=== PATIENT | female | born 1960 | race African-American/Black ===

== ENCOUNTER 2017-10-17 05:49 | Inpatient (IN) ==
[2017-10-16 13:44] LABS: Basophils # 0.1 10*3/uL (0.0-0.2); Eosinophils # 0.3 10*3/uL (0.0-0.87); Eosinophils % 4.9 % (0.00-10.9); Hematocrit 42.4 VOL% (35.7-47.0); Immature Granulocytes % 0.1 %; Immature Granulocytes Absolute 0.01 #; Lymphocytes # 2.7 10*3/uL (1.4-4.0); Lymphocytes % 40.5 % (21.3-54.2); Mean Corpuscular Hemoglobin 30 PG (27-34); Mean Corpuscular Volume 90.2 FL (87-102); Mean Platelet Volume 9.2 FL (9.6-12.0); Monocytes # 0.6 10*3/uL (0.11-0.8); Monocytes % 9.4 % (1.7-12.7); Neutrophils # 2.9 10*3/uL (1.4-7.4); Neutrophils % 44.1 % (38.7-73.9); Platelet Count 314 T/CUMM (130-400); White Blood Count 6.7 T/CUMM (4-12)
[2017-10-16 13:45] LABS: Apearance,Urine CLEAR (Clear); Bilirubin,Urine Negative (Negative); Blood, Urine Small mg/dL (Negative); Glucose,Urine (UA) Negative (Negative); Ketones,Urine Negative (Negative); Nitrite,Urine Negative (Negative); Protein,Urine Negative; RBC,Urine <1 /HPF (0-4); Squamous Epithelial Cell,Urine Occasional /HPF (0-10); Urine Color Straw (Yellow); Urine Specific Gravity 1.024 (1.001-1.035); Urine Urobilinogen < 2.0 EU/DL (0.2-1.0); WBC,Urine <1 /HPF (0-6)
[2017-10-16 13:56] LABS: PT Patient Result 10.9 SECS; Partial Thromboplastin Time 29.7 SECS (0-40)
[2017-10-16 14:12] LABS: Calcium 9.1 MG/DL (8.5-10.1); Osmolality,Calculated 271.7 MOS/KG (273-304); Potassium 3.8 MMOL/L (3.5-5.1)
[~2017-10-17 05:49] MED LIST: SODIUM CHLORIDE 0.9% 1,000 ML IV PRN
[2017-10-17] MEDS ORDERED: DIAZEPAM 5 MG TABLET PO ONE (06:00)
[2017-10-17] MEDS ORDERED: ALBUTEROL/IPRATROPIUM 3 ML NEB RESP TX ONE (06:00)
[2017-10-17] MEDS ORDERED: FAMOTIDINE 20 MG TABLET PO ONE (06:00)
[2017-10-17] MEDS ORDERED: TISSUE ADHESIVE 1 EACH APPLICATOR TOP ONE ×2 (06:12→08:30)
[2017-10-17] MEDS ORDERED: BUPIVACAINE LIPOSOMAL 20 ML/266 MG VIAL ONE (06:12)
[2017-10-17] MEDS ORDERED: FAMOTIDINE 20 MG TABLET ONE (06:19)
[2017-10-17] MEDS ORDERED: DIAZEPAM 5 MG TABLET ONE (06:19)
[2017-10-17] MEDS ORDERED: CEFUROXIME 1,500 MG VIAL ONE (06:32)
[2017-10-17] MEDS ORDERED: LACTATED RINGERS 1,000 ML IV SCH (07:00)
[2017-10-17 10:27] LABS: ABG Base Excess -3.2 MMOL/L (-2.5-2.5); ABG HCO3 21.8 MMOL/L (20-26); ABG Oxygen Saturation 98.9 % (95-100); ABG PCO2 58.8 MM HG (35-48); ABG PH 7.243 (7.35-7.45); ABG TCO2 22.9 MMOL/L (23-27); Glucose Heart Surgery 142 MG/DL (74-106); Hematocrit Heart Surgery 37.8 PERCENT (37-47); Hemoglobin Heart Surgery 12.3 G/DL (12.0-16.0); Ionized Calcium Arterial 1.22 MMOL/L (1.21-1.46); PCO2 Patient Temp Arterial 58.8 MMHG; PH Patient Temp Arterial 7.243; Patient Temperature 37 CELCIUS; Potassium Heart/CVR 4.2 MMOL/L (3.5-5.1); Sodium Heart/CVR 140 MMOL/L (135-145)
[2017-10-17] MEDS ORDERED: ONDANSETRON 4 MG/2 ML VIAL IV PRN (12:22)
[2017-10-17] MEDS ORDERED: ACETAMINOPHEN 325 MG TABLET PO PRN (12:22)
[2017-10-17] MEDS ORDERED: POTASSIUM CHLORIDE INJ 10 MEQ in SODIUM CHLORIDE 0.45% 1,000 ML IV SCH (12:30)
[2017-10-17] MEDS ORDERED: fentaNYL 100 MCG/2 ML VIAL IV ONE (12:48)
[2017-10-17] MEDS ORDERED: fentaNYL 100 MCG/2 ML VIAL ONE ×2 (12:48→12:53)
[2017-10-17] MEDS ORDERED: KETAMINE 500 MG/10 ML VIAL ONE (12:50)
[2017-10-17] MEDS ORDERED: SEVOFLURANE 1 UNIT/15 MINUTE INH ONE (12:52)
[2017-10-17] MEDS ORDERED: PROPOFOL 200 MG/20 ML VIAL IV ONE (12:52)
[2017-10-17] MEDS ORDERED: SODIUM CHLORIDE 0.9% 250 ML IV ONE (12:53)
[2017-10-17] MEDS ORDERED: LACTATED RINGERS 1,000 ML IV ONE (12:53)
[2017-10-17] MEDS ORDERED: PHENYLEPHRINE 10 MG/1 ML VIAL IV ONE (12:53)
[2017-10-17] MEDS ORDERED: GLYCOPYRROLATE 0.4 MG/2 ML VIAL ONE (12:53)
[2017-10-17] MEDS ORDERED: ROCURONIUM 100 MG/10 ML VIAL IV ONE (12:53)
[2017-10-17] MEDS ORDERED: NEOSTIGMINE 10 MG/10 ML VIAL ONE (12:53)
[2017-10-17] MEDS ORDERED: SODIUM CHLORIDE 0.9% 100 ML IV ONE (12:53)
[2017-10-17] MEDS ORDERED: ACETAMINOPHEN 1,000 MG/100 ML VIAL IV ONE (12:53)
[2017-10-17] MEDS ORDERED: SUCCINYLCHOLINE 200 MG/10 ML VIAL ONE ×2 (12:54→12:56)
[2017-10-17 13:03] LABS: Basophils % 0.3 % (0.0-0.8); Eosinophils # 0.1 10*3/uL (0.0-0.87); Eosinophils % 0.3 % (0.00-10.9); Hematocrit 38.8 VOL% (35.7-47.0); Hemoglobin 12.7 GM/DL (12.0-16.0); Immature Granulocytes % 0.3 %; Immature Granulocytes Absolute 0.04 #; Lymphocytes # 2.1 10*3/uL (1.4-4.0); Lymphocytes % 13.7 % (21.3-54.2); Mean Corpuscular HGB Conc 32.7 GM/DL (32-36); Mean Corpuscular Hemoglobin 30 PG (27-34); Mean Corpuscular Volume 91.5 FL (87-102); Mean Platelet Volume 9.3 FL (9.6-12.0); Monocytes # 1.2 10*3/uL (0.11-0.8); Neutrophils # 11.7 10*3/uL (1.4-7.4); Neutrophils % 77.4 % (38.7-73.9); Platelet Count 312 T/CUMM (130-400); Red Blood Count 4.24 MC/CUMM (3.8-5.5); Red Cell Distribution Width 13.2 % (9.3-17.3); White Blood Count 15.1 T/CUMM (4-12)
[2017-10-17] MEDS ORDERED: MIDAZOLAM 2 MG/2 ML VIAL ONE (13:05)
[2017-10-17] MEDS: KETOROLAC 15 MG/1 ML VIAL IV SCH ×2 (13:08→18:25)
[2017-10-17] MEDS: SODIUM CHLOR 0.45% KCL 20 MEQ 20 MEQ/1,000 ML BAG IV SCH ×2 (13:12→21:16)
[2017-10-17 13:20] LABS: Calcium 8.1 MG/DL (8.5-10.1); Osmolality,Calculated 279.3 MOS/KG (273-304); Potassium 4.2 MMOL/L (3.5-5.1)
[2017-10-17] MEDS: MEPERIDINE 50 MG/1 ML VIAL IV PRN ×5 (14:18→23:21)
[2017-10-17] MEDS: GABAPENTIN 100 MG CAPSULE PO SCH ×2 (14:18→20:43)
[2017-10-17] MEDS: ACETAMINOPHEN INJ 1,000 MG in PREMIX 1 EACH IV SCH (18:24)
[2017-10-17] MEDS: CEFUROXIME INJ 1,500 MG in SYRINGE 1 EACH IV SCH (20:43)
[2017-10-18] MEDS: ACETAMINOPHEN INJ 1,000 MG in PREMIX 1 EACH IV SCH (00:14)
[2017-10-18] MEDS: MEPERIDINE 50 MG/1 ML VIAL IV PRN ×7 (00:15→10:00)
[2017-10-18] MEDS: KETOROLAC 15 MG/1 ML VIAL IV SCH ×4 (00:15→18:11)
[2017-10-18 03:14] LABS: Basophils % 0.3 % (0.0-0.8); Eosinophils # 0.2 10*3/uL (0.0-0.87); Eosinophils % 1.5 % (0.00-10.9); Hematocrit 36.2 VOL% (35.7-47.0); Hemoglobin 12.2 GM/DL (12.0-16.0); Immature Granulocytes % 0.3 %; Immature Granulocytes Absolute 0.03 #; Lymphocytes # 2.2 10*3/uL (1.4-4.0); Lymphocytes % 20.6 % (21.3-54.2); Mean Corpuscular HGB Conc 33.7 GM/DL (32-36); Mean Corpuscular Hemoglobin 30 PG (27-34); Mean Corpuscular Volume 87.9 FL (87-102); Mean Platelet Volume 9.3 FL (9.6-12.0); Monocytes % 9.2 % (1.7-12.7); Neutrophils # 7.2 10*3/uL (1.4-7.4); Neutrophils % 68.1 % (38.7-73.9); Platelet Count 277 T/CUMM (130-400); Red Blood Count 4.12 MC/CUMM (3.8-5.5); Red Cell Distribution Width 12.9 % (9.3-17.3); White Blood Count 10.6 T/CUMM (4-12)
[2017-10-18 03:42] LABS: Calcium 8.3 MG/DL (8.5-10.1); Osmolality,Calculated 275.4 MOS/KG (273-304)
[2017-10-18] MEDS: ENOXAPARIN 40 MG/0.4 ML SYRINGE SUBCUT SCH (06:13)
[2017-10-18] MEDS: ACETAMINOPHEN 500 MG TABLET PO SCH ×3 (06:13→18:11)
[2017-10-18] MEDS: SODIUM CHLOR 0.45% KCL 20 MEQ 20 MEQ/1,000 ML BAG IV SCH ×3 (06:18→22:03)
[2017-10-18] MEDS: CEFUROXIME INJ 1,500 MG in SYRINGE 1 EACH IV SCH (07:32)
[2017-10-18] MEDS: GABAPENTIN 100 MG CAPSULE PO SCH ×3 (08:00→22:11)
[2017-10-18] MEDS: CELECOXIB 200 MG CAPSULE PO SCH ×2 (08:30→22:12)
[2017-10-18] MEDS: PANTOPRAZOLE 40 MG VIAL IV SCH (08:34)
[2017-10-18] MEDS ORDERED: PNEUMOCOCCAL VACCINE (23 VALENT) 0.5 ML VIAL IM ONE (09:00)
[2017-10-18] MEDS: clonazePAM 0.5 MG TABLET PO SCH ×2 (09:24→22:12)
[2017-10-18] MEDS ORDERED: PANTOPRAZOLE 40 MG TABLET PO PRN (11:30)
[2017-10-18] MEDS ORDERED: ALBUTEROL 2.5 MG/3 ML NEB RESP TX PRN (11:30)
[2017-10-18] MEDS ORDERED: ONDANSETRON 4 MG TABLET PO PRN (11:30)
[2017-10-18] MEDS: oxyCODONE ER 20 MG TABLET PO SCH ×2 (11:31→22:11)
[2017-10-18] MEDS: MEPERIDINE 50 MG TABLET PO PRN (13:25)
[2017-10-19] MEDS: ACETAMINOPHEN 500 MG TABLET PO SCH ×4 (00:20→18:17)
[2017-10-19] MEDS: KETOROLAC 15 MG/1 ML VIAL IV SCH ×2 (00:20→06:48)
[2017-10-19] MEDS: SODIUM CHLOR 0.45% KCL 20 MEQ 20 MEQ/1,000 ML BAG IV SCH ×2 (04:05→06:44)
[2017-10-19 05:41] LABS: Basophils # 0.1 10*3/uL (0.0-0.2); Basophils % 0.8 % (0.0-0.8); Eosinophils # 0.5 10*3/uL (0.0-0.87); Eosinophils % 6.1 % (0.00-10.9); Hematocrit 34.7 VOL% (35.7-47.0); Hemoglobin 11.9 GM/DL (12.0-16.0); Immature Granulocytes % 0.1 %; Immature Granulocytes Absolute 0.01 #; Lymphocytes # 2.9 10*3/uL (1.4-4.0); Lymphocytes % 33.2 % (21.3-54.2); Mean Corpuscular HGB Conc 34.3 GM/DL (32-36); Mean Corpuscular Hemoglobin 30 PG (27-34); Mean Corpuscular Volume 86.8 FL (87-102); Mean Platelet Volume 9.7 FL (9.6-12.0); Monocytes # 0.9 10*3/uL (0.11-0.8); Monocytes % 10.3 % (1.7-12.7); Neutrophils # 4.3 10*3/uL (1.4-7.4); Neutrophils % 49.5 % (38.7-73.9); Platelet Count 294 T/CUMM (130-400); Red Cell Distribution Width 12.8 % (9.3-17.3); White Blood Count 8.8 T/CUMM (4-12)
[2017-10-19 06:19] LABS: Calcium 8.2 MG/DL (8.5-10.1); Osmolality,Calculated 272.5 MOS/KG (273-304); Potassium 3.6 MMOL/L (3.5-5.1)
[2017-10-19] MEDS: ENOXAPARIN 40 MG/0.4 ML SYRINGE SUBCUT SCH (06:48)
[2017-10-19] MEDS: LEVOTHYROXINE 175 MCG TABLET PO SCH (06:48)
[2017-10-19] MEDS: GABAPENTIN 100 MG CAPSULE PO SCH ×3 (08:49→20:35)
[2017-10-19] MEDS: CELECOXIB 200 MG CAPSULE PO SCH ×2 (08:49→20:34)
[2017-10-19] MEDS: oxyCODONE ER 20 MG TABLET PO SCH ×2 (08:49→20:35)
[2017-10-19] MEDS: clonazePAM 0.5 MG TABLET PO SCH ×2 (08:49→20:35)
[2017-10-19] MEDS: HYDROXYCHLOROQUINE 200 MG TABLET PO SCH (08:49)
[2017-10-19] MEDS: predniSONE 5 MG TABLET PO SCH (08:51)
[2017-10-19] MEDS: PANTOPRAZOLE 40 MG VIAL IV SCH (08:55)
[2017-10-19] MEDS: MEPERIDINE 50 MG TABLET PO PRN (16:57)
[2017-10-19] MEDS: ALBUTEROL 2.5 MG/3 ML NEB RESP TX PRN (21:25)
[2017-10-20] MEDS: ACETAMINOPHEN 500 MG TABLET PO SCH ×4 (00:21→17:30)
[2017-10-20] MEDS: MEPERIDINE 50 MG TABLET PO PRN ×2 (02:00→17:30)
[2017-10-20 05:58] LABS: Basophils # 0.1 10*3/uL (0.0-0.2); Basophils % 0.6 % (0.0-0.8); Eosinophils # 0.5 10*3/uL (0.0-0.87); Hematocrit 35.4 VOL% (35.7-47.0); Hemoglobin 12.1 GM/DL (12.0-16.0); Immature Granulocytes % 0.3 %; Immature Granulocytes Absolute 0.03 #; Lymphocytes # 2.5 10*3/uL (1.4-4.0); Lymphocytes % 28.1 % (21.3-54.2); Mean Corpuscular HGB Conc 34.2 GM/DL (32-36); Mean Corpuscular Hemoglobin 30 PG (27-34); Mean Corpuscular Volume 86.8 FL (87-102); Monocytes % 11.2 % (1.7-12.7); Neutrophils # 4.9 10*3/uL (1.4-7.4); Neutrophils % 53.8 % (38.7-73.9); Platelet Count 338 T/CUMM (130-400); Red Blood Count 4.08 MC/CUMM (3.8-5.5); Red Cell Distribution Width 12.7 % (9.3-17.3)
[2017-10-20 06:22] LABS: Calcium 8.7 MG/DL (8.5-10.1); Osmolality,Calculated 279.3 MOS/KG (273-304); Potassium 3.5 MMOL/L (3.5-5.1)
[2017-10-20] MEDS: ENOXAPARIN 40 MG/0.4 ML SYRINGE SUBCUT SCH (06:53)
[2017-10-20] MEDS: LEVOTHYROXINE 175 MCG TABLET PO SCH (06:53)
[2017-10-20] MEDS: predniSONE 5 MG TABLET PO SCH (08:46)
[2017-10-20] MEDS: oxyCODONE ER 20 MG TABLET PO SCH ×2 (08:46→20:28)
[2017-10-20] MEDS: clonazePAM 0.5 MG TABLET PO SCH ×2 (08:46→20:28)
[2017-10-20] MEDS: CELECOXIB 200 MG CAPSULE PO SCH ×2 (08:46→20:28)
[2017-10-20] MEDS: GABAPENTIN 100 MG CAPSULE PO SCH ×3 (08:46→20:28)
[2017-10-20] MEDS: PANTOPRAZOLE 40 MG VIAL IV SCH (08:46)
[2017-10-20] MEDS: HYDROXYCHLOROQUINE 200 MG TABLET PO SCH (08:46)
[2017-10-20] MEDS ORDERED: FUROSEMIDE 40 MG/4 ML VIAL IV ONE (08:52)
[2017-10-20] MEDS: ALBUTEROL/IPRATROPIUM 3 ML NEB RESP TX SCH ×2 (11:30→19:36)
[2017-10-21] MEDS: ACETAMINOPHEN 500 MG TABLET PO SCH ×4 (00:01→18:07)
[2017-10-21] MEDS: ALBUTEROL/IPRATROPIUM 3 ML NEB RESP TX SCH ×7 (00:06→19:34)
[2017-10-21] MEDS: MEPERIDINE 50 MG TABLET PO PRN ×2 (04:00→12:30)
[2017-10-21 05:10] LABS: Basophils # 0.1 10*3/uL (0.0-0.2); Eosinophils # 0.8 10*3/uL (0.0-0.87); Eosinophils % 8.1 % (0.00-10.9); Hematocrit 38.4 VOL% (35.7-47.0); Hemoglobin 13.1 GM/DL (12.0-16.0); Immature Granulocytes % 0.3 %; Immature Granulocytes Absolute 0.03 #; Lymphocytes # 3.1 10*3/uL (1.4-4.0); Lymphocytes % 33.1 % (21.3-54.2); Mean Corpuscular HGB Conc 34.1 GM/DL (32-36); Mean Corpuscular Hemoglobin 30 PG (27-34); Mean Corpuscular Volume 87.1 FL (87-102); Mean Platelet Volume 9.7 FL (9.6-12.0); Monocytes # 1.2 10*3/uL (0.11-0.8); Monocytes % 12.6 % (1.7-12.7); Neutrophils # 4.2 10*3/uL (1.4-7.4); Neutrophils % 44.9 % (38.7-73.9); Platelet Count 358 T/CUMM (130-400); Red Blood Count 4.41 MC/CUMM (3.8-5.5); Red Cell Distribution Width 12.8 % (9.3-17.3); White Blood Count 9.2 T/CUMM (4-12)
[2017-10-21 05:43] LABS: Calcium 8.7 MG/DL (8.5-10.1); Potassium 3.2 MMOL/L (3.5-5.1)
[2017-10-21] MEDS: LEVOTHYROXINE 175 MCG TABLET PO SCH (06:24)
[2017-10-21] MEDS: ENOXAPARIN 40 MG/0.4 ML SYRINGE SUBCUT SCH (06:24)
[2017-10-21] MEDS: GABAPENTIN 100 MG CAPSULE PO SCH ×3 (08:11→21:45)
[2017-10-21] MEDS: clonazePAM 0.5 MG TABLET PO SCH ×2 (08:11→21:45)
[2017-10-21] MEDS: HYDROXYCHLOROQUINE 200 MG TABLET PO SCH (08:11)
[2017-10-21] MEDS: CELECOXIB 200 MG CAPSULE PO SCH ×2 (08:11→21:45)
[2017-10-21] MEDS: PANTOPRAZOLE 40 MG VIAL IV SCH (08:11)
[2017-10-21] MEDS: oxyCODONE ER 20 MG TABLET PO SCH ×2 (08:11→21:46)
[2017-10-21] MEDS: predniSONE 5 MG TABLET PO SCH (08:11)
[2017-10-21] MEDS ORDERED: POTASSIUM CHLORIDE 20 MEQ TABLET PO ONE (08:32)
[2017-10-21] MEDS: POTASSIUM CHLORIDE 20 MEQ TABLET PO SCH ×4 (08:59→16:25)
[2017-10-21] MEDS: traMADol 50 MG TABLET PO PRN ×2 (10:55→18:08)
[2017-10-21] MEDS ORDERED: POTASSIUM CHLORIDE 20 MEQ TABLET PO SCH (16:30)
[2017-10-22] MEDS: ALBUTEROL/IPRATROPIUM 3 ML NEB RESP TX SCH ×6 (00:18→19:25)
[2017-10-22] MEDS: ACETAMINOPHEN 500 MG TABLET PO SCH ×4 (00:58→18:09)
[2017-10-22] MEDS: MEPERIDINE 50 MG TABLET PO PRN ×2 (04:50→13:46)
[2017-10-22] MEDS: LEVOTHYROXINE 175 MCG TABLET PO SCH (06:39)
[2017-10-22] MEDS: ENOXAPARIN 40 MG/0.4 ML SYRINGE SUBCUT SCH (06:39)
[2017-10-22] MEDS: oxyCODONE ER 20 MG TABLET PO SCH ×2 (08:51→22:40)
[2017-10-22] MEDS: clonazePAM 0.5 MG TABLET PO SCH ×2 (08:51→22:40)
[2017-10-22] MEDS: CELECOXIB 200 MG CAPSULE PO SCH ×2 (08:51→22:40)
[2017-10-22] MEDS: predniSONE 5 MG TABLET PO SCH (08:51)
[2017-10-22] MEDS: GABAPENTIN 100 MG CAPSULE PO SCH ×3 (08:51→22:40)
[2017-10-22] MEDS: HYDROXYCHLOROQUINE 200 MG TABLET PO SCH (08:51)
[2017-10-22] MEDS: PANTOPRAZOLE 40 MG VIAL IV SCH (08:52)
[2017-10-23] MEDS: ALBUTEROL/IPRATROPIUM 3 ML NEB RESP TX SCH ×6 (00:14→19:15)
[2017-10-23] MEDS: ACETAMINOPHEN 500 MG TABLET PO SCH ×4 (01:35→18:59)
[2017-10-23] MEDS: MEPERIDINE 50 MG TABLET PO PRN (05:13)
[2017-10-23] MEDS: ENOXAPARIN 40 MG/0.4 ML SYRINGE SUBCUT SCH (06:34)
[2017-10-23] MEDS: LEVOTHYROXINE 175 MCG TABLET PO SCH (06:35)
[2017-10-23] MEDS: oxyCODONE ER 20 MG TABLET PO SCH ×2 (09:46→21:47)
[2017-10-23] MEDS: CELECOXIB 200 MG CAPSULE PO SCH ×2 (09:48→21:46)
[2017-10-23] MEDS: HYDROXYCHLOROQUINE 200 MG TABLET PO SCH (09:49)
[2017-10-23] MEDS: predniSONE 5 MG TABLET PO SCH (09:49)
[2017-10-23] MEDS: GABAPENTIN 100 MG CAPSULE PO SCH ×3 (09:49→21:47)
[2017-10-23] MEDS: clonazePAM 0.5 MG TABLET PO SCH ×2 (09:50→21:46)
[2017-10-24] MEDS: ALBUTEROL/IPRATROPIUM 3 ML NEB RESP TX SCH ×7 (00:21→23:14)
[2017-10-24] MEDS: ACETAMINOPHEN 500 MG TABLET PO SCH ×4 (01:40→18:10)
[2017-10-24] MEDS: LEVOTHYROXINE 175 MCG TABLET PO SCH (07:19)
[2017-10-24] MEDS: ENOXAPARIN 40 MG/0.4 ML SYRINGE SUBCUT SCH (07:19)
[2017-10-24] MEDS: oxyCODONE ER 20 MG TABLET PO SCH ×2 (10:01→20:22)
[2017-10-24] MEDS: clonazePAM 0.5 MG TABLET PO SCH ×2 (10:02→20:24)
[2017-10-24] MEDS: CELECOXIB 200 MG CAPSULE PO SCH ×2 (10:02→20:24)
[2017-10-24] MEDS: PANTOPRAZOLE 40 MG TABLET PO SCH (10:03)
[2017-10-24] MEDS: predniSONE 5 MG TABLET PO SCH (10:03)
[2017-10-24] MEDS: GABAPENTIN 100 MG CAPSULE PO SCH ×3 (10:03→20:24)
[2017-10-24] MEDS: HYDROXYCHLOROQUINE 200 MG TABLET PO SCH (10:03)
[2017-10-24] MEDS: ALBUTEROL 2.5 MG/3 ML NEB RESP TX PRN (14:54)
[2017-10-25] MEDS: ACETAMINOPHEN 500 MG TABLET PO SCH ×5 (01:45→17:37)
[2017-10-25] MEDS: ALBUTEROL/IPRATROPIUM 3 ML NEB RESP TX SCH ×6 (03:05→23:16)
[2017-10-25] MEDS: MEPERIDINE 50 MG TABLET PO PRN (05:55)
[2017-10-25] MEDS: LEVOTHYROXINE 175 MCG TABLET PO SCH (06:50)
[2017-10-25] MEDS: ENOXAPARIN 40 MG/0.4 ML SYRINGE SUBCUT SCH (06:50)
[2017-10-25] MEDS: oxyCODONE ER 20 MG TABLET PO SCH ×2 (08:45→21:22)
[2017-10-25] MEDS: PANTOPRAZOLE 40 MG TABLET PO SCH (08:47)
[2017-10-25] MEDS: GABAPENTIN 100 MG CAPSULE PO SCH ×3 (08:47→21:22)
[2017-10-25] MEDS: CELECOXIB 200 MG CAPSULE PO SCH ×2 (08:47→21:22)
[2017-10-25] MEDS: clonazePAM 0.5 MG TABLET PO SCH ×2 (08:47→21:22)
[2017-10-25] MEDS: predniSONE 5 MG TABLET PO SCH (08:47)
[2017-10-25] MEDS: HYDROXYCHLOROQUINE 200 MG TABLET PO SCH (08:47)
[2017-10-26] MEDS: ACETAMINOPHEN 500 MG TABLET PO SCH ×2 (00:57→06:03)
[2017-10-26] MEDS: ALBUTEROL/IPRATROPIUM 3 ML NEB RESP TX SCH ×3 (02:45→11:19)
[2017-10-26] MEDS: ENOXAPARIN 40 MG/0.4 ML SYRINGE SUBCUT SCH (06:04)
[2017-10-26] MEDS: LEVOTHYROXINE 175 MCG TABLET PO SCH (06:05)
[2017-10-26 07:58] VITALS: BP 120/55
[2017-10-26] MEDS: GABAPENTIN 100 MG CAPSULE PO SCH (09:52)
[2017-10-26] MEDS: PANTOPRAZOLE 40 MG TABLET PO SCH (09:52)
[2017-10-26] MEDS: CELECOXIB 200 MG CAPSULE PO SCH (09:52)
[2017-10-26] MEDS: HYDROXYCHLOROQUINE 200 MG TABLET PO SCH (09:52)
[2017-10-26] MEDS: predniSONE 5 MG TABLET PO SCH (09:52)
[2017-10-26] MEDS: oxyCODONE ER 20 MG TABLET PO SCH (09:52)
[2017-10-26] MEDS: clonazePAM 0.5 MG TABLET PO SCH (09:52)
== END 2017-10-26 11:33 | disposition home health service (06) | DRG 165 ==
LOC: N.SDSINP 05:49 → N.ICU 10:24 → N.TELES 10-18 11:01
PROVIDERS: ADMIT Thoracic Surgery (Cardiothoracic Vascular Surgery); ATTEND Thoracic Surgery (Cardiothoracic Vascular Surgery)

== ENCOUNTER 2022-02-26 23:29 | Inpatient (IN) ==
[2022-02-26] MEDS ORDERED: ONDANSETRON 4 MG/2 ML VIAL IV ONE (23:54)
[2022-02-26] MEDS ORDERED: MORPHINE 2 MG/1 ML SYRINGE IV ONE (23:54)
[2022-02-27 00:20] LABS: Basophils % 0.3 % (0.0-0.8); Eosinophils % 0.2 % (0.00-10.9); Hematocrit 40.4 VOL% (35.7-47.0); Hemoglobin 13.2 GM/DL (12.0-16.0); Immature Granulocytes % 0.4 %; Immature Granulocytes Absolute 0.05 #; Lymphocytes # 1.4 10*3/uL (1.4-4.0); Lymphocytes % 10.2 % (21.3-54.2); Mean Corpuscular HGB Conc 32.7 GM/DL (32-36); Mean Corpuscular Volume 87.4 FL (87-102); Mean Platelet Volume 10.2 FL (9.6-12.0); Monocytes # 1.5 10*3/uL (0.11-0.8); Monocytes % 10.7 % (1.7-12.7); Neutrophils % 78.2 % (38.7-73.9); Platelet Count 559 T/CUMM (130-400); Red Blood Count 4.62 MC/CUMM (3.8-5.5); Red Cell Distribution Width 13.7 % (9.3-17.3); White Blood Count 13.7 T/CUMM (4-12)
[2022-02-27] MEDS ORDERED: HYDROmorphone 1 MG/1 ML SYRINGE IV STA (00:21)
[2022-02-27 00:25] LABS: Albumin 2.1 G/DL (3.4-5.0); Calcium 8.7 MG/DL (8.5-10.1); Osmolality,Calculated 273.7 MOS/KG (273-304); Potassium 3.1 MMOL/L (3.5-5.1); Total Protein 6.4 G/DL (6.4-8.2)
[2022-02-27] MEDS ORDERED: AZITHROMYCIN INJ 500 MG in SODIUM CHLORIDE 0.9% 250 ML IV STA (00:44)
[2022-02-27] MEDS ORDERED: cefTRIAXone 1,000 MG in SODIUM CHLORIDE 0.9% 100 ML IV STA (00:44)
[2022-02-27 00:51] LABS: INR 1.1; PT Patient Result 12.1 SECS (10.1-12.1); Partial Thromboplastin Time 32.3 SECS (23.7-32.9)
[2022-02-27] MEDS ORDERED: MORPHINE 2 MG/1 ML SYRINGE IV PRN (02:24)
[2022-02-27] MEDS ORDERED: ONDANSETRON 4 MG/2 ML VIAL IV PRN (02:24)
[2022-02-27] MEDS ORDERED: NICOTINE 21 MG/24 HR PATCH TRANSDERM PRN (02:24)
[2022-02-27] MEDS ORDERED: ACETAMINOPHEN 325 MG TABLET PO PRN (02:24)
[2022-02-27] MEDS ORDERED: ALBUTEROL/IPRATROPIUM 3 ML NEB RESP TX STA (02:30)
[2022-02-27] MEDS ORDERED: LACTATED RINGERS 1,000 ML IV SCH (02:45)
[2022-02-27] MEDS: PIPERACILLIN/TAZOBACTAM 3,375 MG in SODIUM CHLORIDE 0.9% 100 ML IV SCH ×3 (03:00→18:32)
[2022-02-27] MEDS: POTASSIUM CHLORIDE RIDER 10 MEQ/100 ML PREMIX IV SCH ×2 (03:00→03:58)
[2022-02-27] MEDS ORDERED: HYDROmorphone 1 MG/1 ML SYRINGE IV PRN (03:17)
[2022-02-27] MEDS: VANCOMYCIN INJ 1,250 MG in SODIUM CHLORIDE 0.9% 250 ML IV SCH ×2 (04:08→14:35)
[2022-02-27] MEDS ORDERED: POTASSIUM CHLORIDE 20 MEQ TABLET PO ONE (04:30)
[2022-02-27 06:09] LABS: Basophils # 0.1 10*3/uL (0.0-0.2); Basophils % 0.4 % (0.0-0.8); Eosinophils # 0.1 10*3/uL (0.0-0.87); Eosinophils % 0.5 % (0.00-10.9); Hemoglobin 12.5 GM/DL (12.0-16.0); Immature Granulocytes % 0.6 %; Immature Granulocytes Absolute 0.08 #; Lymphocytes # 1.2 10*3/uL (1.4-4.0); Lymphocytes % 9.3 % (21.3-54.2); Mean Corpuscular HGB Conc 32.9 GM/DL (32-36); Mean Corpuscular Volume 87.4 FL (87-102); Mean Platelet Volume 9.7 FL (9.6-12.0); Monocytes # 1.4 10*3/uL (0.11-0.8); Monocytes % 10.5 % (1.7-12.7); Neutrophils % 78.7 % (38.7-73.9); Platelet Count 535 T/CUMM (130-400); Red Blood Count 4.35 MC/CUMM (3.8-5.5); Red Cell Distribution Width 13.7 % (9.3-17.3); White Blood Count 13.1 T/CUMM (4-12)
[2022-02-27 06:34] LABS: Calcium 9.1 MG/DL (8.5-10.1); Osmolality,Calculated 272.7 MOS/KG (273-304); Potassium 3.1 MMOL/L (3.5-5.1)
[2022-02-27] MEDS: ALBUTEROL/IPRATROPIUM 3 ML NEB RESP TX SCH ×3 (07:20→20:27)
[2022-02-27] MEDS: PANTOPRAZOLE 40 MG TABLET PO SCH (09:41)
[2022-02-27] MEDS: methylPREDNISolone SOD SUC 40 MG/1 ML VIAL IV SCH ×2 (09:42→15:37)
[2022-02-27] MEDS ORDERED: FUROSEMIDE 40 MG/4 ML VIAL IV ONE (14:00)
[2022-02-27] MEDS ORDERED: POTASSIUM CHLORIDE 20 MEQ TABLET PO PRN (14:19)
[2022-02-27] MEDS: PREGABALIN 75 MG CAPSULE PO SCH ×2 (14:33→22:08)
[2022-02-27] MEDS: oxyCODONE ER 20 MG TABLET PO SCH ×2 (14:33→22:08)
[2022-02-27] MEDS: clonazePAM 0.5 MG TABLET PO SCH (22:08)
[2022-02-28] MEDS: ALBUTEROL/IPRATROPIUM 3 ML NEB RESP TX SCH ×4 (01:28→19:14)
[2022-02-28] MEDS: methylPREDNISolone SOD SUC 40 MG/1 ML VIAL IV SCH ×3 (01:35→18:17)
[2022-02-28] MEDS: PIPERACILLIN/TAZOBACTAM 3,375 MG in SODIUM CHLORIDE 0.9% 100 ML IV SCH ×3 (03:02→21:45)
[2022-02-28] MEDS: VANCOMYCIN INJ 1,250 MG in SODIUM CHLORIDE 0.9% 250 ML IV SCH ×2 (04:38→20:42)
[2022-02-28 05:07] LABS: Basophils % 0.2 % (0.0-0.8); Hematocrit 38.5 VOL% (35.7-47.0); Hemoglobin 12.6 GM/DL (12.0-16.0); Immature Granulocytes % 0.5 %; Immature Granulocytes Absolute 0.06 #; Lymphocytes # 0.9 10*3/uL (1.4-4.0); Lymphocytes % 7.6 % (21.3-54.2); Mean Corpuscular HGB Conc 32.7 GM/DL (32-36); Mean Corpuscular Volume 87.7 FL (87-102); Mean Platelet Volume 10.2 FL (9.6-12.0); Monocytes # 0.8 10*3/uL (0.11-0.8); Monocytes % 6.6 % (1.7-12.7); Neutrophils % 85.1 % (38.7-73.9); Platelet Count 614 T/CUMM (130-400); Red Blood Count 4.39 MC/CUMM (3.8-5.5); Red Cell Distribution Width 13.7 % (9.3-17.3); White Blood Count 11.7 T/CUMM (4-12)
[2022-02-28 05:28] LABS: Calcium 9.5 MG/DL (8.5-10.1); Osmolality,Calculated 282.4 MOS/KG (273-304); Potassium 3.4 MMOL/L (3.5-5.1)
[2022-02-28] MEDS: clonazePAM 0.5 MG TABLET PO SCH ×2 (08:58→21:45)
[2022-02-28] MEDS: PREGABALIN 75 MG CAPSULE PO SCH ×2 (08:59→21:45)
[2022-02-28] MEDS: PANTOPRAZOLE 40 MG TABLET PO SCH (08:59)
[2022-02-28] MEDS: LEVOTHYROXINE 125 MCG TABLET PO SCH (08:59)
[2022-02-28] MEDS: oxyCODONE ER 20 MG TABLET PO SCH ×2 (08:59→21:45)
[2022-02-28] MEDS ORDERED: SPIRONOLACTONE 25 MG TABLET PO SCH (09:00)
[2022-02-28] MEDS ORDERED: POTASSIUM CHLORIDE 20 MEQ TABLET PO ONE (09:56)
[2022-02-28] MEDS: ENOXAPARIN 40 MG/0.4 ML SYRINGE SUBCUT SCH (18:17)
[2022-02-28] MEDS: AZITHROMYCIN INJ 500 MG in SODIUM CHLORIDE 0.9% 250 ML IV SCH (18:17)
[2022-03-01] MEDS: ALBUTEROL/IPRATROPIUM 3 ML NEB RESP TX SCH ×5 (00:24→19:50)
[2022-03-01] MEDS: methylPREDNISolone SOD SUC 40 MG/1 ML VIAL IV SCH ×3 (01:55→17:17)
[2022-03-01 05:13] LABS: Basophils % 0.1 % (0.0-0.8); Hematocrit 38.1 VOL% (35.7-47.0); Hemoglobin 12.4 GM/DL (12.0-16.0); Immature Granulocytes % 0.5 %; Immature Granulocytes Absolute 0.09 #; Lymphocytes # 0.6 10*3/uL (1.4-4.0); Lymphocytes % 3.5 % (21.3-54.2); Mean Corpuscular HGB Conc 32.5 GM/DL (32-36); Mean Corpuscular Volume 88.6 FL (87-102); Monocytes # 0.6 10*3/uL (0.11-0.8); Monocytes % 3.7 % (1.7-12.7); Neutrophils % 92.2 % (38.7-73.9); Platelet Count 646 T/CUMM (130-400); Red Cell Distribution Width 14.2 % (9.3-17.3); White Blood Count 16.6 T/CUMM (4-12)
[2022-03-01] MEDS: VANCOMYCIN INJ 1,000 MG in SODIUM CHLORIDE 0.9% 250 ML IV SCH ×3 (05:28→23:06)
[2022-03-01 05:33] LABS: Calcium 9.3 MG/DL (8.5-10.1); Osmolality,Calculated 283.4 MOS/KG (273-304); Potassium 3.5 MMOL/L (3.5-5.1)
[2022-03-01 05:38] LABS: Alanine Aminotransferase 79 U/L (13-56); Alkaline Phosphatase 153 U/L (45-117); Aspartate Amino Transferase 198 U/L (0-37); Bilirubin,Total < 0.39 MG/DL (0.20-1.00); Blood Urea Nitrogen 20 MG/DL (7-18); Calcium 9.2 MG/DL (8.5-10.1); Carbon Dioxide 28 MMOL/L (21-32); Chloride 105 MMOL/L (98-107); Glucose 130 MG/DL (74-106); Osmolality,Calculated 285.3 MOS/KG (273-304); Potassium 3.5 MMOL/L (3.5-5.1); Sodium 141 MMOL/L (136-145); Total Protein 6.8 G/DL (6.4-8.2)
[2022-03-01 05:49] LABS: Lymphocytes 4 % (20-55); Platelet Estimate Increased; Total Cells Counted 100
[2022-03-01] MEDS: PIPERACILLIN/TAZOBACTAM 3,375 MG in SODIUM CHLORIDE 0.9% 100 ML IV SCH ×2 (06:43→17:14)
[2022-03-01] MEDS: PREGABALIN 75 MG CAPSULE PO SCH ×2 (09:17→21:08)
[2022-03-01] MEDS: PANTOPRAZOLE 40 MG TABLET PO SCH (09:17)
[2022-03-01] MEDS: LEVOTHYROXINE 125 MCG TABLET PO SCH (09:17)
[2022-03-01] MEDS: oxyCODONE ER 20 MG TABLET PO SCH ×2 (09:17→21:08)
[2022-03-01] MEDS: clonazePAM 0.5 MG TABLET PO SCH ×2 (09:18→21:08)
[2022-03-01] MEDS: ENOXAPARIN 40 MG/0.4 ML SYRINGE SUBCUT SCH (17:17)
[2022-03-01] MEDS: AZITHROMYCIN INJ 500 MG in SODIUM CHLORIDE 0.9% 250 ML IV SCH (21:07)
[2022-03-02] MEDS: PIPERACILLIN/TAZOBACTAM 3,375 MG in SODIUM CHLORIDE 0.9% 100 ML IV SCH ×2 (00:16→06:31)
[2022-03-02] MEDS: methylPREDNISolone SOD SUC 40 MG/1 ML VIAL IV SCH ×2 (00:18→09:26)
[2022-03-02] MEDS: ALBUTEROL/IPRATROPIUM 3 ML NEB RESP TX SCH ×3 (00:38→13:30)
[2022-03-02] MEDS: VANCOMYCIN INJ 1,000 MG in SODIUM CHLORIDE 0.9% 250 ML IV SCH (05:17)
[2022-03-02 05:43] LABS: Basophils % 0.1 % (0.0-0.8); Hematocrit 36.1 VOL% (35.7-47.0); Hemoglobin 11.6 GM/DL (12.0-16.0); Immature Granulocytes % 0.6 %; Lymphocytes # 0.5 10*3/uL (1.4-4.0); Lymphocytes % 3.4 % (21.3-54.2); Mean Corpuscular HGB Conc 32.1 GM/DL (32-36); Mean Corpuscular Volume 88.5 FL (87-102); Mean Platelet Volume 9.8 FL (9.6-12.0); Monocytes # 0.6 10*3/uL (0.11-0.8); Monocytes % 3.8 % (1.7-12.7); Neutrophils % 92.1 % (38.7-73.9); Platelet Count 619 T/CUMM (130-400); Red Blood Count 4.08 MC/CUMM (3.8-5.5); White Blood Count 15.7 T/CUMM (4-12)
[2022-03-02 06:00] LABS: Osmolality,Calculated 288.8 MOS/KG (273-304); Potassium 3.8 MMOL/L (3.5-5.1)
[2022-03-02 06:17] LABS: Lymphocytes 3 % (20-55); Platelet Estimate Increased; Total Cells Counted 100
[2022-03-02] MEDS ORDERED: FUROSEMIDE 40 MG/4 ML VIAL IV ONE (07:34)
[2022-03-02] MEDS: clonazePAM 0.5 MG TABLET PO SCH (09:26)
[2022-03-02] MEDS: PREGABALIN 75 MG CAPSULE PO SCH (09:26)
[2022-03-02] MEDS: oxyCODONE ER 20 MG TABLET PO SCH (09:26)
[2022-03-02] MEDS: PANTOPRAZOLE 40 MG TABLET PO SCH (09:26)
[2022-03-02] MEDS: LEVOTHYROXINE 125 MCG TABLET PO SCH (09:27)
[2022-03-02 12:29] VITALS: BP 100/60
[2022-03-05 12:51] LABS: Mycoplasma pneumoniae Ab Inter SEE COMMENTS; Mycoplasma pneumoniae Ab, IgG Positive (Negative); Mycoplasma pneumoniae Ab, IgM Negative (Negative)
== END 2022-03-02 17:02 | disposition home health service (06) | DRG 193 ==
LOC: EDUNIT# → EDBD → N.ED 23:29 → N.TELEN 02-27 02:24 → SUATTDRO 02-27 02:24 → N.TELEN 02-27 03:30
PROVIDERS: ADMIT Hospitalist; ATTEND Internal Medicine

== ENCOUNTER 2022-06-04 10:26 | Inpatient (IN) ==
[2022-06-04] MEDS ORDERED: ALBUTEROL/IPRATROPIUM 3 ML NEB RESP TX PRN (15:36)
[2022-06-04] MEDS ORDERED: hydrALAZINE 20 MG/1 ML VIAL IV PRN (15:36)
[2022-06-04] MEDS ORDERED: ACETAMINOPHEN 325 MG TABLET PO PRN (15:36)
[2022-06-04] MEDS ORDERED: ONDANSETRON 4 MG/2 ML VIAL IV PRN (15:36)
[2022-06-04] MEDS ORDERED: NALOXONE 0.4 MG/ML VIAL IV PRN (15:50)
[2022-06-04 16:22] LABS: Basophils % 0.1 % (0.0-0.8); Hematocrit 41.4 VOL% (35.7-47.0); Hemoglobin 13.6 GM/DL (12.0-16.0); Immature Granulocytes % 0.4 %; Immature Granulocytes Absolute 0.04 #; Lymphocytes # 0.3 10*3/uL (1.4-4.0); Lymphocytes % 2.8 % (21.3-54.2); Mean Corpuscular HGB Conc 32.9 GM/DL (32-36); Mean Corpuscular Volume 83.8 FL (87-102); Mean Platelet Volume 9.3 FL (9.6-12.0); Monocytes # 0.3 10*3/uL (0.11-0.8); Monocytes % 3.3 % (1.7-12.7); Neutrophils % 93.4 % (38.7-73.9); Platelet Count 553 T/CUMM (130-400); Red Blood Count 4.94 MC/CUMM (3.8-5.5); White Blood Count 9.3 T/CUMM (4-12)
[2022-06-04 16:57] LABS: Alanine Aminotransferase 28 U/L (13-56); Albumin 2.6 G/DL (3.4-5.0); Alkaline Phosphatase 48 U/L (45-117); Aspartate Amino Transferase 21 U/L (0-37); Bilirubin,Total < 0.39 MG/DL (0.20-1.00); Blood Urea Nitrogen 20 MG/DL (7-18); Calcium 9.4 MG/DL (8.5-10.1); Carbon Dioxide 28 MMOL/L (21-32); Chloride 101 MMOL/L (98-107); Glucose 128 MG/DL (74-106); Potassium 4.3 MMOL/L (3.5-5.1); Sodium 136 MMOL/L (136-145); Total Protein 6.5 G/DL (6.4-8.2)
[2022-06-04 17:38] LABS: Lymphocytes 4 % (20-55); Total Cells Counted 100
[2022-06-04 17:39] LABS: Platelet Estimate Increased
[2022-06-04] MEDS: HYDROmorphone PCA 30 MG/30 ML SYRINGE IV SCH (17:46)
[2022-06-04] MEDS: PREGABALIN 75 MG CAPSULE PO SCH (21:05)
[2022-06-05] MEDS ORDERED: NITROGLYCERIN SL 0.4 MG TABLET SL ONE ×2 (00:19→00:30)
[2022-06-05 00:33] LABS: Basophils % 0.1 % (0.0-0.8); Hematocrit 40.4 VOL% (35.7-47.0); Hemoglobin 13.4 GM/DL (12.0-16.0); Immature Granulocytes % 0.9 %; Immature Granulocytes Absolute 0.08 #; Lymphocytes # 1.1 10*3/uL (1.4-4.0); Lymphocytes % 11.8 % (21.3-54.2); Mean Corpuscular HGB Conc 33.2 GM/DL (32-36); Mean Corpuscular Volume 83.6 FL (87-102); Mean Platelet Volume 9.3 FL (9.6-12.0); Monocytes # 1.1 10*3/uL (0.11-0.8); Monocytes % 11.8 % (1.7-12.7); Neutrophils % 75.4 % (38.7-73.9); Platelet Count 509 T/CUMM (130-400); Red Blood Count 4.83 MC/CUMM (3.8-5.5); Red Cell Distribution Width 19.3 % (9.3-17.3); White Blood Count 9.1 T/CUMM (4-12)
[2022-06-05 00:58] LABS: Calcium 8.9 MG/DL (8.5-10.1); Osmolality,Calculated 272.1 MOS/KG (273-304); Potassium 3.9 MMOL/L (3.5-5.1)
[2022-06-05 01:31] LABS: Lymphocytes 17 % (20-55); Platelet Estimate Increased; Total Cells Counted 100
[2022-06-05] MEDS ORDERED: LORazepam 1 MG TABLET PO ONE (03:30)
[2022-06-05] MEDS: LEVOTHYROXINE 125 MCG TABLET PO SCH (05:46)
[2022-06-05] MEDS ORDERED: DEXAMETHASONE 10 MG/1 ML VIAL IV ONE (08:38)
[2022-06-05] MEDS ORDERED: predniSONE 5 MG TABLET PO SCH (09:00)
[2022-06-05] MEDS: PREGABALIN 75 MG CAPSULE PO SCH ×2 (10:38→21:22)
[2022-06-05] MEDS: PANTOPRAZOLE 40 MG TABLET PO SCH (10:38)
[2022-06-05] MEDS: HYDROXYCHLOROQUINE 200 MG TABLET PO SCH (10:38)
[2022-06-05] MEDS: HYDROmorphone PCA 30 MG/30 ML SYRINGE IV SCH (11:05)
[2022-06-05] MEDS: DEXAMETHASONE 4 MG TABLET PO SCH ×2 (16:58→21:22)
[2022-06-06 05:18] LABS: Hematocrit 40.4 VOL% (35.7-47.0); Hemoglobin 13.4 GM/DL (12.0-16.0); Immature Granulocytes % 0.4 %; Lymphocytes # 0.7 10*3/uL (1.4-4.0); Lymphocytes % 9.3 % (21.3-54.2); Mean Corpuscular HGB Conc 33.2 GM/DL (32-36); Mean Corpuscular Volume 84.3 FL (87-102); Mean Platelet Volume 9.3 FL (9.6-12.0); Monocytes % 6.9 % (1.7-12.7); Neutrophils % 83.4 % (38.7-73.9); Platelet Count 448 T/CUMM (130-400); Red Blood Count 4.79 MC/CUMM (3.8-5.5); Red Cell Distribution Width 19.1 % (9.3-17.3); White Blood Count 7.1 T/CUMM (4-12)
[2022-06-06 05:19] LABS: Immature Granulocytes Absolute 0.03 #; Monocytes # 0.5 10*3/uL (0.11-0.8)
[2022-06-06 05:43] LABS: Calcium 8.7 MG/DL (8.5-10.1); Osmolality,Calculated 278.7 MOS/KG (273-304); Potassium 4.1 MMOL/L (3.5-5.1)
[2022-06-06] MEDS: LEVOTHYROXINE 125 MCG TABLET PO SCH (06:12)
[2022-06-06] MEDS: PREGABALIN 75 MG CAPSULE PO SCH ×2 (09:21→21:00)
[2022-06-06] MEDS: PANTOPRAZOLE 40 MG TABLET PO SCH (09:21)
[2022-06-06] MEDS: HYDROXYCHLOROQUINE 200 MG TABLET PO SCH (09:21)
[2022-06-06] MEDS: DEXAMETHASONE 4 MG TABLET PO SCH ×3 (09:21→21:01)
[2022-06-06] MEDS: NICOTINE 21 MG/24 HR PATCH TRANSDERM PRN (17:26)
[2022-06-06] MEDS: HYDROmorphone PCA 30 MG/30 ML SYRINGE IV SCH (22:43)
[2022-06-07] MEDS: LEVOTHYROXINE 125 MCG TABLET PO SCH (05:51)
[2022-06-07 05:56] LABS: Basophils % 0.1 % (0.0-0.8); Hematocrit 41.3 VOL% (35.7-47.0); Hemoglobin 13.5 GM/DL (12.0-16.0); Immature Granulocytes % 0.7 %; Immature Granulocytes Absolute 0.06 #; Lymphocytes # 0.8 10*3/uL (1.4-4.0); Lymphocytes % 9.1 % (21.3-54.2); Mean Corpuscular HGB Conc 32.7 GM/DL (32-36); Mean Corpuscular Volume 84.5 FL (87-102); Mean Platelet Volume 9.8 FL (9.6-12.0); Monocytes # 0.5 10*3/uL (0.11-0.8); Neutrophils % 84.1 % (38.7-73.9); Platelet Count 450 T/CUMM (130-400); Red Blood Count 4.89 MC/CUMM (3.8-5.5); Red Cell Distribution Width 19.6 % (9.3-17.3); White Blood Count 8.8 T/CUMM (4-12)
[2022-06-07 06:19] LABS: Calcium 9.3 MG/DL (8.5-10.1); Osmolality,Calculated 277.8 MOS/KG (273-304); Potassium 4.1 MMOL/L (3.5-5.1)
[2022-06-07] MEDS: HYDROXYCHLOROQUINE 200 MG TABLET PO SCH (09:16)
[2022-06-07] MEDS: PANTOPRAZOLE 40 MG TABLET PO SCH (09:16)
[2022-06-07] MEDS: DEXAMETHASONE 4 MG TABLET PO SCH ×3 (09:16→20:55)
[2022-06-07] MEDS: PREGABALIN 75 MG CAPSULE PO SCH ×2 (09:16→20:55)
[2022-06-07] MEDS ORDERED: MYLANTA/LIDO VISC/NYST 180 ML BOTTLE SWISH/SWAL PRN (10:00)
[2022-06-07] MEDS: LORazepam 2 MG/1 ML VIAL IV PRN ×2 (11:53→18:49)
[2022-06-08 05:21] LABS: Eosinophils % 0.1 % (0.00-10.9); Hematocrit 40.4 VOL% (35.7-47.0); Hemoglobin 13.1 GM/DL (12.0-16.0); Immature Granulocytes % 0.7 %; Immature Granulocytes Absolute 0.08 #; Lymphocytes # 1.2 10*3/uL (1.4-4.0); Lymphocytes % 10.8 % (21.3-54.2); Mean Corpuscular HGB Conc 32.4 GM/DL (32-36); Mean Corpuscular Volume 85.4 FL (87-102); Mean Platelet Volume 10.5 FL (9.6-12.0); Neutrophils % 79.4 % (38.7-73.9); Platelet Count 337 T/CUMM (130-400); Red Blood Count 4.73 MC/CUMM (3.8-5.5); Red Cell Distribution Width 19.6 % (9.3-17.3); White Blood Count 11.2 T/CUMM (4-12)
[2022-06-08 05:32] LABS: Calcium 8.9 MG/DL (8.5-10.1); Osmolality,Calculated 284.3 MOS/KG (273-304); Potassium 4.2 MMOL/L (3.5-5.1)
[2022-06-08] MEDS: LEVOTHYROXINE 125 MCG TABLET PO SCH (06:17)
[2022-06-08] MEDS: HYDROmorphone PCA 30 MG/30 ML SYRINGE IV SCH ×3 (07:23→21:50)
[2022-06-08] MEDS: PANTOPRAZOLE 40 MG TABLET PO SCH (09:35)
[2022-06-08] MEDS: HYDROXYCHLOROQUINE 200 MG TABLET PO SCH (09:36)
[2022-06-08] MEDS: DEXAMETHASONE 4 MG TABLET PO SCH ×3 (09:36→21:07)
[2022-06-08] MEDS: PREGABALIN 75 MG CAPSULE PO SCH ×2 (09:36→21:07)
[2022-06-08] MEDS: LORazepam 2 MG/1 ML VIAL IV PRN (13:25)
[2022-06-08] MEDS: NICOTINE 21 MG/24 HR PATCH TRANSDERM PRN (21:07)
[2022-06-09] MEDS: LEVOTHYROXINE 125 MCG TABLET PO SCH (05:52)
[2022-06-09] MEDS: LORazepam 2 MG/1 ML VIAL IV PRN ×3 (08:34→19:40)
[2022-06-09] MEDS: PREGABALIN 75 MG CAPSULE PO SCH ×2 (09:59→20:05)
[2022-06-09] MEDS: DEXAMETHASONE 4 MG TABLET PO SCH ×3 (09:59→20:05)
[2022-06-09] MEDS: PANTOPRAZOLE 40 MG TABLET PO SCH (09:59)
[2022-06-09] MEDS: HYDROXYCHLOROQUINE 200 MG TABLET PO SCH (09:59)
[2022-06-09] MEDS ORDERED: fentaNYL 50 MCG/HR PATCH TRANSDERM SCH (10:00)
[2022-06-10] MEDS: HYDROmorphone PCA 30 MG/30 ML SYRINGE IV SCH ×2 (02:43→17:54)
[2022-06-10] MEDS: LORazepam 2 MG/1 ML VIAL IV PRN ×2 (03:15→20:20)
[2022-06-10] MEDS: LEVOTHYROXINE 125 MCG TABLET PO SCH (05:50)
[2022-06-10] MEDS: HYDROXYCHLOROQUINE 200 MG TABLET PO SCH (08:30)
[2022-06-10] MEDS: PANTOPRAZOLE 40 MG TABLET PO SCH (08:30)
[2022-06-10] MEDS: PREGABALIN 75 MG CAPSULE PO SCH ×2 (08:30→20:20)
[2022-06-10] MEDS: DEXAMETHASONE 4 MG TABLET PO SCH ×3 (08:30→20:20)
[2022-06-10 08:53] LABS: Basophils % 0.1 % (0.0-0.8); Hemoglobin 14.1 GM/DL (12.0-16.0); Immature Granulocytes % 0.7 %; Immature Granulocytes Absolute 0.09 #; Lymphocytes # 0.5 10*3/uL (1.4-4.0); Lymphocytes % 4.2 % (21.3-54.2); Mean Platelet Volume 10.1 FL (9.6-12.0); Monocytes # 0.4 10*3/uL (0.11-0.8); Platelet Count 357 T/CUMM (130-400); Red Blood Count 5.06 MC/CUMM (3.8-5.5); Red Cell Distribution Width 20.2 % (9.3-17.3); White Blood Count 12.5 T/CUMM (4-12)
[2022-06-10 09:05] LABS: Calcium 9.5 MG/DL (8.5-10.1); Osmolality,Calculated 288.4 MOS/KG (273-304); Potassium 3.8 MMOL/L (3.5-5.1)
[2022-06-10 09:22] LABS: Hypochromia 1+; Lymphocytes 3 % (20-55); Microcytosis 1+; Target Cells Slight; Total Cells Counted 100
[2022-06-10 09:23] LABS: Platelet Estimate Normal
[2022-06-11] MEDS: LEVOTHYROXINE 125 MCG TABLET PO SCH (05:45)
[2022-06-11 08:06] LABS: Basophils % 0.2 % (0.0-0.8); Eosinophils % 0.1 % (0.00-10.9); Hemoglobin 12.6 GM/DL (12.0-16.0); Immature Granulocytes % 1.1 %; Immature Granulocytes Absolute 0.13 #; Lymphocytes # 0.5 10*3/uL (1.4-4.0); Lymphocytes % 4.3 % (21.3-54.2); Mean Corpuscular HGB Conc 32.3 GM/DL (32-36); Mean Corpuscular Volume 86.1 FL (87-102); Mean Platelet Volume 10.1 FL (9.6-12.0); Monocytes # 1.1 10*3/uL (0.11-0.8); Monocytes % 8.9 % (1.7-12.7); Neutrophils % 85.4 % (38.7-73.9); Platelet Count 348 T/CUMM (130-400); Red Blood Count 4.53 MC/CUMM (3.8-5.5); Red Cell Distribution Width 19.4 % (9.3-17.3); White Blood Count 12.3 T/CUMM (4-12)
[2022-06-11 08:28] LABS: Hypochromia Slight; Lymphocytes 5 % (20-55); Microcytosis Slight; Platelet Estimate Adequate; Total Cells Counted 100
[2022-06-11 08:30] LABS: Albumin 2.4 G/DL (3.4-5.0); Bilirubin,Total 0.4 MG/DL (0.20-1.00); Calcium 9.1 MG/DL (8.5-10.1); Osmolality,Calculated 283.5 MOS/KG (273-304); Potassium 4.2 MMOL/L (3.5-5.1)
[2022-06-11] MEDS ORDERED: clonazePAM 0.5 MG TABLET PO SCH (09:00)
[2022-06-11] MEDS: HYDROXYCHLOROQUINE 200 MG TABLET PO SCH (09:03)
[2022-06-11] MEDS: PREGABALIN 75 MG CAPSULE PO SCH (09:11)
[2022-06-11] MEDS: DEXAMETHASONE 4 MG TABLET PO SCH ×2 (09:11→15:03)
[2022-06-11] MEDS: PANTOPRAZOLE 40 MG TABLET PO SCH (09:12)
[2022-06-11 16:21] VITALS: BP 124/78
[2022-06-11] MEDS: HYDROmorphone PCA 30 MG/30 ML SYRINGE IV SCH (17:32)
[2022-06-11] MEDS ORDERED: MENTHOL/ZINC OXIDE OINT 71 GM JAR TOP SCH (21:00)
== END 2022-06-11 17:30 | disposition hospice, home (50) | DRG 849 ==
LOC: N.TELES → OBSVTOIN 14:10 → SUATTDRO 14:10 → N.TELES 06-09 16:43
PROVIDERS: ADMIT Internal Medicine; ATTEND Internal Medicine